=== PATIENT | female | born 1980 | race Caucasian/White ===

== ENCOUNTER → 2018-02-26 | Outpatient (CLI) | payer BC ==
--- NOTE | 2018-02-26 11:35 | MM ---
Reason for exam: screening (asymptomatic). Baseline mammogram. History: Patient is nulliparous. Family history of breast cancer in 2 paternal cousins. Taking hormonal contraceptives for 3 years beginning at age 34. Physical Findings: Nurse did not find any significant physical abnormalities on exam. MG 3D Screening Mammo W/Cad Bilateral CC and MLO view(s) were taken. The breast tissue is heterogeneously dense. This may lower the sensitivity of mammography. Finding: There is an equal density (isodense), circumscribed oval mass located 9 cm from the nipple in the middle position of the left breast. These results were verbally communicated with the patient and result sheet given to the patient on 02/26/18. ASSESSMENT: Incomplete: need additional imaging evaluation, BI-RAD 0 RECOMMENDATION: Ultrasound of the left breast.
--- NOTE | 2018-02-26 11:36 | USB ---
Reason for exam: additional evaluation requested from abnormal screening. History: Patient is nulliparous. Family history of breast cancer in 2 paternal cousins. Taking hormonal contraceptives for 3 years beginning at age 34. Physical Findings: Breast exam preformed at baseline screening. US Breast Workup Limited LT Left limited breast ultrasound including focal area of concern, retroareolar and axilla demonstrates a 0.4 x 0.2 x 0.3cm lesion too small to characterize at 2 o'clock. These results were verbally communicated with the patient and result sheet given to the patient on 02/26/18. ASSESSMENT: Probably benign, BI-RAD 3 RECOMMENDATION: Follow-up diagnostic mammogram and ultrasound of the left breast in 6 months.
== END | disposition home or self-care (01) ==
LOC: RADMAMWWP 10:19
PROVIDERS: ATTEND Obstetrics & Gynecology
DX: Z12.31 Encounter for screening mammogram for malignant neoplasm of breast (principal); R92.8 Other abnormal and inconclusive findings on diagnostic imaging of breast
CPT/HCPCS: 77063; 77067

== ENCOUNTER → 2018-10-23 | Outpatient (CLI) | payer BC ==
--- NOTE | 2018-10-23 13:37 | MR ---
EXAMINATION TYPE: MR knee RT wo con DATE OF EXAM: 10/23/2018 COMPARISON: Outside x-ray 10/13/2018 HISTORY: Right knee pain TECHNIQUE: Multiplanar, multisequence imaging of the right knee is performed without IV contrast. FINDINGS: Postsurgical changes are suggestive of previous ACL repair. ACL and PCL appear intact. Medi al collateral and lateral collateral ligaments appear intact. Signal alteration within the femur and tibia appears to be related to prior surgery. Popliteus tendon intact. There is intrasubstance signal posterior horn the medial meniscus. Cartilage appears to be maintained . Lateral meniscus has a normal appearance. There is small amount of fluid in the suprapatellar bursa. Patellar and quadriceps tendons intact. Th ere is grade III chondromalacia lateral patellar facet. No evidence of sizable popliteal fossa cyst. Tiny focal area of low signal on all sequences overlying the lateral posterior femoral condyle most likely related to bone IMPRESSION: 1. 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 2. Postsurgical change compatible with ACL repair with no evidence of recurrent tear. 3. Intrasubstance signal posterior horn the medial meniscus. Subtle linear tear favored over myxoid d egeneration correlate clinically.
== END | disposition home or self-care (01) ==
LOC: RADMRIMAIN 12:04
PROVIDERS: ATTEND Orthopaedic Surgery
DX: M22.41 Chondromalacia patellae, right knee (principal); Z98.890 Other specified postprocedural states

== ENCOUNTER → 2019-01-21 | Outpatient (CLI) | payer BC ==
--- NOTE | 2019-01-21 13:42 | XR ---
EXAMINATION TYPE: XR elbow complete RT DATE OF EXAM: 01/21/2019 CLINICAL HISTORY: Right elbow pain after injury from syncopal episode TECHNIQUE: Frontal, lateral and oblique images of the right elbow are obtained. COMPARISON: None FINDINGS: There is no acute fracture/dislocation evident in the right elbow. No abnormal fat pad si gns are seen. The overlying soft tissue appears unremarkable. IMPRESSION: There is no acute fracture or dislocation in the right elbow.
== END ==
LOC: RADXRMAIN 12:25
PROVIDERS: ATTEND Nurse Practitioner Family
DX: M25.521 Pain in right elbow (principal)

== ENCOUNTER → 2019-01-21 | Outpatient (CLI) | payer BC | END | disposition home or self-care (01) | LOC: LABWHC1 12:41 | PROVIDERS: ATTEND Physical Medicine & Rehabilitation | DX: M54.5 Low back pain (principal); G90.50 Complex regional pain syndrome I, unspecified; G57.21 Lesion of femoral nerve, right lower limb | CPT/HCPCS: 36415; 93005 ==

== ENCOUNTER → 2019-01-25 | Outpatient (CLI) | payer BC ==
--- NOTE | 2019-01-25 14:58 | US ---
EXAMINATION TYPE: US venous doppler duplex LE RT DATE OF EXAM: 01/25/2019 2:45 PM COMPARISON: NONE CLINICAL HISTORY: G90.50 Complex regional pain syndrome I, u, G57.21. pain and swelling. SIDE PERFORMED: Right TECHNIQUE: The lower extremity deep venous system is examined utilizing real time linear array sonog jaylon with graded compression, doppler sonography and color-flow sonography. VESSELS IMAGED: External Iliac Vein (EIV) Common Femoral Vein Deep Femoral Vein Greater Saphenous Vein * Femoral Vein Popliteal Vein Small Saphenous Vein * Proximal Calf Veins (* superficial vessels) Right Leg: Negative for DVT IMPRESSION: Grayscale, color doppler, spectral doppler imaging performed of the deep veins of the lo wer extremities. There is normal flow, compressibility, vascular waveforms.
== END | disposition home or self-care (01) ==
LOC: RADUSWWP 14:13
PROVIDERS: ATTEND Physical Medicine & Rehabilitation
DX: G90.50 Complex regional pain syndrome I, unspecified (principal); G57.21 Lesion of femoral nerve, right lower limb

== ENCOUNTER → 2019-09-12 | Outpatient (CLI) | payer MEDICARE, OTHER ==
--- NOTE | 2019-09-13 07:05 | XR ---
EXAMINATION TYPE: XR Hip Complete RT DATE OF EXAM: 09/12/2019 CLINICAL HISTORY: pain TECHNIQUE: AP and frogleg views of the right hip are obtained. COMPARISON: None. FINDINGS: There is no acute fracture/dislocation evident. The joint space appears within normal li mits. The overlying soft tissue appears unremarkable. IMPRESSION: 1. There is no acute fracture or dislocation. ICD 10 NO FRACTURE, INITIAL EVALUATION
--- NOTE | 2019-09-13 07:06 | XR ---
EXAMINATION TYPE: XR mandible complete DATE OF EXAM: 09/12/2019 COMPARISON: NONE HISTORY: Jaw pain TECHNIQUE: 5 views of the mandible are submitted for evaluation. FINDINGS: There is no evidence for fracture or dislocation. No osseous some mass is noted. No bony de structive process seen. TMJs are grossly symmetric as noted. IMPRESSION: No distinct abnormality appreciated.
--- NOTE | 2019-09-13 07:06 | XR ---
EXAMINATION TYPE: XR knee complete RT DATE OF EXAM: 09/12/2019 CLINICAL HISTORY: pain TECHNIQUE: Three views of the right knee are obtained. COMPARISON: None. FINDINGS: There is no acute fracture/dislocation. Postoperative changes of ACL reconstruction with the tibial and femoral tunneling noted. The tri-compartment joint spaces appear within normal limits. The overlying soft tissue appears unremarkable. IMPRESSION: There is no acute fracture or dislocation.ICD 10 NO FRACTURE, INITIAL EVALUATION
== END | disposition home or self-care (01) ==
LOC: RADXRMAIN 18:17
PROVIDERS: ATTEND Family Medicine
DX: M25.561 Pain in right knee (principal); M26.621 Arthralgia of right temporomandibular joint; M26.601 Right temporomandibular joint disorder, unspecified; M25.551 Pain in right hip
CPT/HCPCS: 70110; 73502

== ENCOUNTER → 2019-09-14 | Outpatient (CLI) | payer MEDICARE, OTHER ==
--- NOTE | 2019-09-15 09:17 | CT ---
EXAMINATION TYPE: CT brain wo con DATE OF EXAM: 09/14/2019 COMPARISON: HISTORY: Fall with injury. Visual disturbance CT DLP: [address] of the brain was performed. The ventricles, basal cisterns and sulci overlying the cerebral convexities demonstrate a normal appe arance. There is no evidence for intracranial hemorrhage or sulcal effacement. No mass effects are seen. Osseous calvarium is intact. If symptoms persist consider MRI as clinically warranted. IMPRESSION: 1. No acute intracranial process is seen at this time.
== END | disposition home or self-care (01) ==
LOC: RADCTMAIN 16:28
PROVIDERS: ATTEND Nurse Practitioner Women's Health
DX: G43.909 Migraine, unspecified, not intractable, without status migrainosus (principal)
CPT/HCPCS: 70450

== ENCOUNTER 2020-08-28 | Emergency (ER) | payer MEDICARE, OTHER | END 2020-08-28 20:18 | disposition other institution (70) | CPT/HCPCS: 99285 ×2; 96365 ×2; 96375 ×2; 90471; 36415; 80048; 83605; 85025; 85610; 85730; 86140; 87040; 73130; 90715; J3370; J0295; J1885; 96367 ==

== ENCOUNTER → 2021-06-11 | Outpatient (CLI) | payer MEDICARE, OTHER ==
--- NOTE | 2021-06-12 10:16 | MM ---
Reason for exam: screening (asymptomatic). Last mammogram was performed 3 years and 3 months ago. History: Patient is nulliparous. Family history of breast cancer in 2 paternal cousins. Taking hormonal contraceptives for 3 years beginning at age 34. Physical Findings: A clinical breast exam by your physician is recommended on an annual basis and results should be correlated with mammographic findings. MG 3D Screening Mammo W/Cad Bilateral CC and MLO view(s) were taken. Prior study comparison: February 26, 2018, bilateral MG 3d screening mammo w/cad. The breast tissue is heterogeneously dense. This may lower the sensitivity of mammography. There is no discrete abnormality. ASSESSMENT: Negative, BI-RAD 1 RECOMMENDATION: Routine screening mammogram of both breasts in 1 year.
== END | disposition home or self-care (01) ==
LOC: RADMAMWWP 11:03
PROVIDERS: ATTEND Obstetrics & Gynecology
DX: Z12.31 Encounter for screening mammogram for malignant neoplasm of breast (principal)
CPT/HCPCS: 77063; 77067

== ENCOUNTER → 2021-06-11 | Outpatient (CLI) | payer SELFPAY ==
--- NOTE | 2021-06-11 12:20 | XR ---
EXAMINATION TYPE: XR chest 2V DATE OF EXAM: 06/11/2021 COMPARISON: None INDICATION: Potential kidney donor TECHNIQUE: Frontal and lateral views of the chest are obtained. FINDINGS: The heart size is normal. The pulmonary vasculature is normal. The lungs are clear. IMPRESSION: 1. No acute pulmonary process.
[2021-06-11 14:18] LABS: Creatinine,Urine Random 187.3 mg/dL
[2021-06-11 14:22] LABS: Partial Thromboplastin Time 25.3 sec (22.0-30.0); Prothrombin Time 10.4 sec (9.0-12.0)
[2021-06-11 14:43] LABS: Appearance,Urine Clear (Clear); Bacteria,Urine Rare /hpf; Bilirubin,Urine Negative (Negative); Blood,Urine Negative (Negative); Color,Urine Yellow; Glucose,Urine (UA) Negative (Negative); Ketones,Urine Negative (Negative); Leukocyte Esterase,Urine Trace (Negative); Mucus,Urine Rare /hpf; Nitrite,Urine Negative (Negative); Protein,Urine Negative (Negative); Specific Gravity,Urine 1.022 (1.001-1.035); Squamous Epithelial Cell,Urine 4 /hpf (0-4); Urobilinogen,Urine <2.0 mg/dL (<2.0); WBC,Urine 2 /hpf (0-5)
[2021-06-12 00:14] LABS: Basophils # (A) 0.06 X 10*3/uL (0.00-0.10); Basophils % (A) 0.9 %; Eosinophils # (A) 0.12 X 10*3/uL (0.04-0.35); Eosinophils % (A) 1.9 %; HCT 46.9 % (37.2-46.3); Immature Grans, Automated 0.6 %; Lymphocytes % (A) 34.8 %; MCH 25.2 pg (27.0-32.0); MCHC 29.9 g/dL (32.0-37.0); MCV 84.4 fL (80.0-97.0); Mean Platelet Volume 12.6 fL (9.5-12.2); Monocytes # (A) 0.46 X 10*3/uL (0.20-1.00); Monocytes % (A) 7.3 %; NRBC Per 100 WBC 0 /100 WBCS (0.0-0.0); Neutrophils # (A) 3.45 X 10*3/uL (1.80-7.70); Neutrophils % (A) 54.5 %; Platelet Count 239 X 10*3/uL (140-440); RBC 5.56 X 10*6/uL (4.10-5.20); WBC 6.33 X 10*3/uL (4.50-10.00)
[2021-06-12 00:52] LABS: Chol/HDL Ratio 3.62 Ratio; LDH 194 U/L (120-246); LDL Cholesterol,Calculated 102.5 mg/dL (0.0-131.0)
[2021-06-12 01:11] LABS: HCG,Quantitative Serum <3.0 (0.0-6.0); Prostate Specific Antigen <0.01 ng/mL
[2021-06-12 05:49] LABS: Toxoplasma Antibody (IgG) <3.0 IU/mL (<7.2)
[2021-06-12 06:00] LABS: EBV - EA (IgG) 9.4 U/mL (<9.0)
[2021-06-12 06:09] LABS: ALT 25 U/L (8-44); AST 19 U/L (13-35); Albumin 4.7 g/dL (3.8-4.9); Albumin/Globulin Ratio 1.62 (1.60-3.17); Alkaline Phosphatase 74 U/L (41-126); BUN/Creat Ratio 15.22 Ratio (12.00-20.00); Bilirubin, Conjugated <0.20 mg/dL (0.20-0.40); Blood Urea Nitrogen 13.7 mg/dL (9.0-27.0); Calcium 9.5 mg/dL (8.7-10.3); Carbon Dioxide 18.4 mmol/L (20.0-27.5); Chloride 108 mmol/L (96-109); GGT 25 U/L (0-38); Globulin 2.9 g/dL (1.6-3.3); Glucose 80 mg/dL (70-110); Hepatitis B Surface Antibody Reactive (Nonreactive); Non-African American GFR(CKD) 79.4 (60.0-200.0); Phosphorus 3.3 mg/dL (2.4-5.1); Sodium 139 mmol/L (135-145); Total Bilirubin <0.15 mg/dL (0.30-1.20); Total Protein 7.6 g/dL (6.2-8.2)
[2021-06-12 06:19] LABS: Hepatitis B Core IgM Nonreactive (Nonreactive); Hepatitis B Surface Antigen Nonreactive (Nonreactive); Hepatitis C IgG Antibody Nonreactive (Nonreactive)
[2021-06-12 08:33] LABS: Total Volume 24 Hour,Urine 2100 mL
[2021-06-12 08:34] LABS: Total Protein 24 Hour,Urine 6.1 mg/dL (0.0-165.0)
== END | disposition home or self-care (01) ==
LOC: LABWHC1 10:53
PROVIDERS: ATTEND Surgery
DX: Z00.5 Encounter for examination of potential donor of organ and tissue (principal); Z13.6 Encounter for screening for cardiovascular disorders
CPT/HCPCS: 36415; 71046; 80053; 80061; 81001; 81050; 82043; 82248; 82570; 82977; 83036; 83615; 84100; 84153; 84156; 84702; 85025; 85610; 85730; 86480; 86644; 86663; 86704; 86705; 86706; 86777; 86780; 86803; 87086; 87340; 87390; 87522; 93005

== ENCOUNTER → 2022-10-01 | Outpatient (CLI) | payer MEDICARE, OTHER ==
--- NOTE | 2022-10-02 08:31 | MM ---
Reason for Exam: Screening (asymptomatic). Last mammogram was performed 1 year(s) and 4 month(s) ago. Patient History: Menarche at age 11. Patient has no children. Currently using Hormonal Contraceptives, beginning at age 34 for 3 years. Paternal cousin had breast cancer. Paternal cousin had breast cancer. Risk Values: Lia 5 year model risk: 0.8%. NCI Lifetime model risk: 10.8%. Prior Study Comparison: 02/26/2018 Bilateral Screening Mammogram, [facility]. 06/11/2021 Bilateral Screening Mammogram, [facility]. Tissue Density: The breast tissue is heterogeneously dense. This may lower the sensitivity of mammography. Findings: Analyzed By CAD. There is no suspicious group of microcalcifications or new suspicious mass in either breast. Overall Assessment: Negative, BI-RAD 1 Management: Screening Mammogram of both breasts in 1 year. . Patient should continue monthly self-breast exams. A clinical breast exam by your physician is recommended on an annual basis. This exam should not preclude additional follow-up of suspicious palpable abnormalities. Note on Lia scores and lifetime risk: 1. A Lia score greater than 3% is considered moderate risk. If this is the case, consider specialist referral to assess eligibility for a risk reducing agent. 2. If overall lifetime risk for the development of breast cancer is 20% or higher, the patient may qualify for future screening with alternating mammogram and breast MRI. Electronically signed and approved by: Bjorn Eller M.D. Radiologis
== END | disposition home or self-care (01) ==
LOC: RADMAMWWP 08:34
PROVIDERS: ATTEND Obstetrics & Gynecology
DX: Z12.31 Encounter for screening mammogram for malignant neoplasm of breast (principal); Z80.3 Family history of malignant neoplasm of breast
CPT/HCPCS: 77063; 77067

== ENCOUNTER → 2022-10-24 | Outpatient (CLI) | payer MEDICARE, OTHER | END | disposition home or self-care (01) | LOC: LABWHC1 09:53 | PROVIDERS: ATTEND Surgery | DX: Z53.9 Procedure and treatment not carried out, unspecified reason (principal) ==

== ENCOUNTER → 2023-06-23 | Outpatient (CLI) | payer MEDICARE, OTHER ==
--- NOTE | 2023-06-23 12:00 | XR ---
EXAMINATION TYPE: XR orbit complete bilateral DATE OF EXAM: 06/23/2023 COMPARISON: NONE HISTORY: S00.83XA F07.81 S16.1XXA G57.71 S00.33XA TECHNIQUE: 3 views of the orbits submitted. FINDINGS: No evidence for displaced fracture or dislocation. No radiopaque foreign body. Paranasal si nuses are well-aerated. IMPRESSION: Negative
--- NOTE | 2023-06-23 12:00 | XR ---
EXAMINATION TYPE: XR nasal bone DATE OF EXAM: 06/23/2023 CLINICAL HISTORY: pain TECHNIQUE: 3 views of the nasal bones are submitted. FINDINGS: Three views of the nasal bones fail to demonstrate evidence for displaced or depressed nasal bone fra cture. Paranasal sinuses are well-aerated. IMPRESSION: No evidence for displaced or depressed nasal bone fracture. ICD 10 NO FRACTURE, INITIAL EVALUATION
== END | disposition home or self-care (01) ==
LOC: RADXRMAIN 11:33
PROVIDERS: ATTEND Family Medicine
DX: S00.83XA Contusion of other part of head, initial encounter (principal); S16.1XXA Strain of muscle, fascia and tendon at neck level, initial encounter; S00.33XA Contusion of nose, initial encounter; F07.81 Postconcussional syndrome; G57.71 Causalgia of right lower limb; H53.8 Other visual disturbances; X58.XXXA Exposure to other specified factors, initial encounter
CPT/HCPCS: 70160; 70200

== ENCOUNTER → 2024-04-13 | Outpatient (CLI) | payer MEDICARE ==
--- NOTE | 2024-04-13 11:44 | MM ---
Reason for Exam: Screening (asymptomatic). Last mammogram was performed 1 year(s) and 6 month(s) ago. Patient History: Menarche at age 11. Patient has no children. Premenopausal. Currently using Hormonal Contraceptives, beginning at age 34 for 3 years. Paternal cousin had breast cancer. Paternal cousin had breast cancer. Risk Values: Lia 5 year model risk: 0.9%. NCI Lifetime model risk: 10.7%. Prior Study Comparison: 02/26/2018 Bilateral Screening Mammogram, [facility]. 06/11/2021 Bilateral Screening Mammogram, [facility]. 10/01/2022 Bilateral MG 3D screening mammo w/cad, [facility]. Tissue Density: The breasts are heterogeneously dense, which may obscure small masses. Findings: Analyzed By CAD. Right breast: There is no suspicious group of microcalcifications or new suspicious mass. Left breast: There is no suspicious group of microcalcifications or new suspicious mass. Overall Assessment: Negative, BI-RAD 1 Management: Screening Mammogram of both breasts in [address] [facility] will attempt to contact patient to return for supplemental views and ultrasound if indicated. Patient should continue monthly self-breast exams. A clinical breast exam by your physician is recommended on an annual basis. This exam should not preclude additional follow-up of suspicious palpable abnormalities. Note on Lia scores and lifetime risk: 1. A Lia score greater than 3% is considered moderate risk. If this is the case, consider specialist referral to assess eligibility for a risk reducing agent. 2. If overall lifetime risk for the development of breast cancer is 20% or higher, the patient may qualify for future screening with alternating mammogram and breast MRI. [facility], , 04/13/2024 11:41 AM. Electronically signed and approved by: Wilton Rodriguez DO
== END | disposition home or self-care (01) ==
LOC: RADMAMWWP 10:24
PROVIDERS: ATTEND Family Medicine
DX: Z12.31 Encounter for screening mammogram for malignant neoplasm of breast (principal); R92.333 Mammographic heterogeneous density, bilateral breasts; Z80.3 Family history of malignant neoplasm of breast
CPT/HCPCS: 77063; 77067